=== PATIENT | female | born 1990 | race African-American/Black ===

== ENCOUNTER 2016-10-29 19:26 | Emergency (ER) | payer OTHER ==
[~2016-10-29] VITALS: Ht 157.5 cm; Wt 108.5 kg
[~2016-10-29 19:26] MED LIST: CLEOCIN300 MG PO; FLEXERIL10 MG PO; NAPROSYN500 MG PO; NAPROXEN500 MG PO; PREDNISONE20 MG PO; PREDNISONE50 MG PO; VICODIN,LORT1 TABLET PO
[2016-10-30] MEDS ORDERED: OPANA ER5 MG PO (00:22)
[2016-10-30] MEDS ORDERED: ENDOCET 5-3251 EACH PO (00:23)
[2016-10-30 02:24] VITALS: BP 161/94
== END 2016-10-30 02:36 | disposition home or self-care (01) ==
LOC: EME 19:26 → RME 19:26
DX: S70.01XA Contusion of right hip, initial encounter (principal); S09.90XA Unspecified injury of head, initial encounter; M54.9 Dorsalgia, unspecified; W00.0XXA Fall on same level due to ice and snow, initial encounter; G89.29 Other chronic pain; F17.200 Nicotine dependence, unspecified, uncomplicated
CPT/HCPCS: 70450; 72100; 72192; 73502; 99281; 99284; J1170